=== PATIENT | female | born 1995 | race Caucasian/White ===

== ENCOUNTER 2018-05-02 03:52 | Inpatient (IN) ==
--- NOTE | 2018-05-02 05:10 | ED ---
History of Present Illness Primary Care Physician: UNKNOWN No care Chief Complaint: Contractions, it is time to have my baby History of Present Illness: 22-year-old reports 41-week presents complaining of contractions states is also time to deliver. No care to date. Patient reports that she moves every week. 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 SKIN: Warm and dry. HEAD: Normocephalic and atraumatic. EYES: No scleral icterus. No injection or drainage. ENT: No nasal drainage noted. Mucous membranes pink. Airway patent. NECK: Supple, trachea midline. No JVD. CARDIOVASCULAR: Regular rate and rhythm without murmurs, gallops, or rubs. RESPIRATORY: Breath sounds equal bilaterally. No accessory muscle use. BREASTS: Bilateral exam showed no masses , no retractions, no nipple discharge. ABDOMEN/GI: Abdomen soft, non-tender, bowel sounds present, no rebound, no guarding Gravid to 38 weeks size Fundal Height: 38 GENITOURINARY: External Genitalia: intact and normal in appearance BUS glands: Unremarkable Cervix: Soft Dilatation: 1 Effacement: 90% Station: -2 Presentation: Vertex Membranes: Intact Uterine Contractions: Present FHT's: Category: 1 Variability: Moderate EXTREMITIES: No cyanosis or edema. BACK: Nontender without obvious deformity. No CVA tenderness. NEUROLOGICAL: Awake and alert. Motor and sensory grossly within normal limits. Five out of 5 muscle strength in all muscle groups. Normal speech. Results - Labs CBC & Chem 7: 05/02/18 05:05 Assessment and Plan - Diagnosis (1) Non-reactive NST (non-stress test) Code(s): O28.8 - Other abnormal findings on screening of mother Status: Acute (2) No care in current in third trimester Code(s): O09.33 - Supervision of with insufficient care, third trimester Status: Acute (3) Uterine contractions Status: Acute (4) 41 weeks gestation of Code(s): Z3A.41 - 41 weeks gestation of Status: Acute - Plan No care to date All unregistered labs GBS Ultrasound scheduled this morning for dating Discussed with the patient plan for admit- heart rate category 2 with episodic variable decelerations noted as well as accelerations noted Will hydrate with fluids and continue monitor Discharge Plan - Discharge Disposition Patient Disposition: ED Admit(ED Internal Use Only) - Discharge Condition Condition: Stable - Physicians Team ED Provider: Linda Lane Primary Care Provider: UNKNOWN, - Rxs /Orders / Referrals /Forms Referrals: UNKNOWN, [Primary Care Provider] - See Instructions - Discharge Instructions Print Language: Bruneian
[2018-05-02 05:27] LABS: Baso # (Auto) 0.1 th/mm3 (0.0-0.2); Baso % (Auto) 0.8 % (0.0-2.0); Eos # (Auto) 0.1 th/mm3 (0.0-0.4); Eos % (Auto) 1.1 % (0.0-4.0); Hematocrit 39.5 % (35.0-46.0); Hemoglobin 13.2 gm/dL (11.6-15.3); Lymph # (Auto) 1.1 th/mm3 (1.0-4.8); Lymph % (Auto) 9.1 % (9.0-44.0); Mean Corpuscular HGB Conc 33.3 % (32.0-36.0); Mean Platelet Volume 10.2 fL (7.0-11.0); Mono # (Auto) 0.6 th/mm3 (0.0-0.9); Mono % (Auto) 4.6 % (0.0-8.0); Neut # (Auto) 10.5 th/mm3 (1.8-7.7); Neut % (Auto) 84.4 % (16.0-70.0); Platelet Count 145 th/mm3 (150-450); Red Blood Count 4.54 mil/mm3 (4.00-5.30); Red Cell Distribution Width 13.9 % (11.6-17.2); White Blood Count 12.4 th/mm3 (4.0-11.0)
[2018-05-02] MEDS ORDERED: Oxytocin 30 Units/500ml Premix 30 UNITS/500 ML BAG IV.SIG ONE (05:36)
[2018-05-02] MEDS ORDERED: Naloxone Inj 0.4 MG/ML Vial IV.PUSH PRN (05:36)
[2018-05-02] MEDS ORDERED: Sod Chloride 0.9% Inj 1,000 ML IV.CONT PRN (05:36)
[2018-05-02] MEDS ORDERED: fentaNYL Citrate Inj 100 MCG/2 ML Ampul IV.PUSH PRN ×2 (05:36)
[2018-05-02] MEDS ORDERED: Sodium Chlor 0.9% Inj 500 ML IV.SIG PRN (05:36)
--- NOTE | 2018-05-02 05:40 | P.HPOB ---
Patient Name: Marjorie Morley Date of : 89 Patient Status: Emergency Emergency Provider: Linda Lane Date: 05/02/18 05:03 Initialization Date: 05/02/18 05:03 History of Present Illness Primary Care Physician: UNKNOWN No care Chief Complaint: Contractions, it is time to have my baby History of Present Illness: 22-year-old reports 41-week presents complaining of contractions states is also time to deliver. No care to date. Patient reports that she moves every week. 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 SKIN: Warm and dry. HEAD: Normocephalic and atraumatic. EYES: No scleral icterus. No injection or drainage. ENT: No nasal drainage noted. Mucous membranes pink. Airway patent. NECK: Supple, trachea midline. No JVD. CARDIOVASCULAR: Regular rate and rhythm without murmurs, gallops, or rubs. RESPIRATORY: Breath sounds equal bilaterally. No accessory muscle use. BREASTS: Bilateral exam showed no masses , no retractions, no nipple discharge. ABDOMEN/GI: Abdomen soft, non-tender, bowel sounds present, no rebound, no guarding Gravid to 38 weeks size Fundal Height: 38 GENITOURINARY: External Genitalia: intact and normal in appearance BUS glands: Unremarkable Cervix: Soft Dilatation: 1 Effacement: 90% Station: -2 Presentation: Vertex Membranes: Intact Uterine Contractions: Present FHT's: Category: 2 Variability: Moderate EXTREMITIES: No cyanosis or edema. BACK: Nontender without obvious deformity. No CVA tenderness. NEUROLOGICAL: Awake and alert. Motor and sensory grossly within normal limits. Five out of 5 muscle strength in all muscle groups. Normal speech. Results - Labs CBC & Chem 7: 05/02/18 05:05 Assessment and Plan - Diagnosis (1) Non-reactive NST (non-stress test) Code(s): O28.8 - Other abnormal findings on screening of mother Status: Acute (2) No care in current in third trimester Code(s): O09.33 - Supervision of with insufficient care, third trimester Status: Acute (3) Uterine contractions Status: Acute (4) 41 weeks gestation of Code(s): Z3A.41 - 41 weeks gestation of Status: Acute - Plan No care to date All unregistered labs GBS Ultrasound scheduled this morning for dating Discussed with the patient plan for admit- heart rate category 2 with episodic variable decelerations noted as well as accelerations noted Will hydrate with fluids and continue monitor Discharge Plan - Discharge Disposition Patient Disposition: ED Admit(ED Internal Use Only) - Discharge Condition Condition: Stable
[2018-05-02] MEDS ORDERED: Citric Acid/Sodium Citrate Liq 30 ML UDC PO SCH (05:45)
[2018-05-02 06:24] VITALS: RESP 18
[2018-05-02 06:43] LABS: Rubella IgG Antibody 102.4 IU/mL (10.0-500.0)
[2018-05-02 07:14] LABS: Hepatitis A IgM Antibody Nonreactive (Nonreactive); Hepatitits B Surface Antigen Nonreactive (Nonreactive)
[2018-05-02 08:21] VITALS: BP 131/80; PULSE 67; TEMP 97.5
--- NOTE | 2018-05-02 10:49 | P.OBGPN ---
Patient with BPP 8/10, NST reactive. She will be discharged today and scheduled for induction on Tuesday.
== END 2018-05-02 11:18 | disposition home or self-care (01) ==
LOC: HOBED 03:52 → H2E 05:38
PROVIDERS: ADMIT Obstetrics & Gynecology; ATTEND Obstetrics & Gynecology

== ENCOUNTER 2018-05-02 19:19 | Inpatient (IN) ==
[~2018-05-02 19:19] MED LIST: Diphtheria/Tetanus/Pertussis Vaccine Inj 0.5 ML Syringe IM ONE; Measles/Mumps/Rubella Vaccine Inj 0.5 ML Vial SQ ONE
[2018-05-02] MEDS ORDERED: Penicillin G Potassium Inj 5,000,000 UNIT in Sodium Chloride 0.9% Inj 100 ML IV.SIG ONE (20:13)
[2018-05-02] MEDS ORDERED: fentaNYL Citrate Inj 100 MCG/2 ML Ampul IV.PUSH PRN ×2 (20:13)
[2018-05-02] MEDS ORDERED: Sodium Chlor 0.9% Inj 500 ML IV.SIG PRN (20:13)
[2018-05-02] MEDS ORDERED: Oxytocin 30 Units/500ml Premix 30 UNITS/500 ML BAG IV.SIG ONE (20:13)
[2018-05-02] MEDS ORDERED: Naloxone Inj 0.4 MG/ML Vial IV.PUSH PRN ×2 (20:13→23:14)
[2018-05-02] MEDS ORDERED: Sod Chloride 0.9% Inj 1,000 ML IV.CONT PRN (20:13)
[2018-05-02] MEDS ORDERED: Citric Acid/Sodium Citrate Liq 30 ML UDC PO SCH (20:15)
--- NOTE | 2018-05-02 20:32 | P.HPOB ---
History of Present Illness Primary Care Physician: No Primary Care Physician Chief Complaint: fluid leakage History of Present Illness: Patient is a 22 year old at 41 weeks and 1 day who presents to OB triage for evaluation of fluid leakage. Patient says that she has experienced continuous clear fluid leakage since 4 or 5 p.m. today. She has also been experiencing some vaginal bleeding this afternoon. Patient had been admitted to L&D yesterday, then was discharged this morning and scheduled for an induction on Tuesday. Patient denies contractions; she endorses a feeling of pressure in her vaginal area. Patient endorses positive movement. No care to date; patient reports that she moves every week. Weeks Gestation:: 41 Para: 0 : 1 - Inpatient Certification I certify that the inpatient services were ordered in accordance with Medicare regulations governing the order. This includes certification that hospital inpatient services are reasonable and necessary and in the case of services not specified as inpatient-only under 42 CFR 419.22(n), that they are appropriately provided as inpatient services in accordance to with the 2-midnight benchmark under 43 CFR 412.3(e) Estimated Total Length of Stay (Days): 3 Plans for Post Hospital Care: Home Review of Systems All other systems reviewed negative except as stated in HPI PMFSH - History History Provided By: Patient - Medical / Surgical Hx Neg / Unobtainable Medical Problems Denied: Yes Surgical History: No Previous Surgery - Family History Family History: Family History (Last Updated 05/02/18 @ 20:30 by Jada Hernandez MD, R2) Other No significant family history - Social History I have reviewed the patient's Social History: Yes - Tobacco History Smoking Status: Never smoker - Alcohol History How Often Do You Have a Drink Containing Alcohol: Never - Substance Use History Substance History: No History of Abuse Medications and Allergies Active Medications: Active Medications Citric Acid/Sodium Citrate (Sodium Citrate/Citric Acid Liq) 30 ml PO [employer]AC[employer] A[employer]LY[employer] [facility] Stop: 05/06/18 20:14 Fentanyl Citrate (Fentanyl Inj) 50 mcg IV.PUSH Q1H PRN PRN Reason: Pain Scale 3 - 5 Fentanyl Citrate (Fentanyl Inj) 100 mcg IV.PUSH Q1H PRN PRN Reason: PAIN SCALE 6 TO 10 Lactated Ringer's (Lr 1000 Ml Inj) 1,000 mls @ 3,000 mls/hr IV.SIG UNSCH PRN PRN Reason: compromise or epidural Lactated Ringer's (Lr 1000 Ml Inj) 1,000 mls @ 125 mls/hr IV.CONT .Q8H ELOISE Sodium Chloride (Ns Inj) 500 mls @ 1,000 mls/hr IV.SIG UNSCH PRN PRN Reason: SEE LABEL COMMENTS Sodium Chloride (Ns Inj) 1,000 mls @ 100 mls/hr IV.CONT .Q10H PRN PRN Reason: SEE LABEL COMMENTS Oxytocin (Pitocin 30 Units/Ns 500 Ml Premix) 30 units in 500 mls @ 999 mls/hr IV.SIG BOLUS ONE Stop: 05/02/18 20:43 Penicillin G Potassium 5,000, (000 unit/ Sodium Chloride) 100 mls @ 200 mls/hr IV.SIG ONCE ONE Stop: 05/02/18 20:42 Penicillin G Potassium 2,500, (000 unit/ Sodium Chloride) 100 mls @ 200 mls/hr IV.SIG Q4H ELOISE Lidocaine HCl (Xylocaine 1% Inj) 0.1 ml I-DERMAL PRN PRN PRN Reason: For IV start Stop: 05/05/18 20:12 Lidocaine HCl (Xylocaine 1% Inj) 10 ml INFILTRATN PRN PRN PRN Reason: For episiotomy repair Stop: 05/04/18 20:12 Mineral Oil (Muri-Lube Oil) 10 ml TOPICAL PRN PRN PRN Reason: PRN perineal massage Naloxone HCl (Narcan Inj) 0.1 mg IV.PUSH Q2M PRN PRN Reason: for opiate reversal Allergies Allergy/AdvReac Type Severity Reaction Status Date / Time No Known Allergies Allergy Unverified 05/02/18 04:46 Home Medications Medication Instructions Recorded Confirmed Type [id number] 1 tab PO DAILY 05/02/18 05/02/18 History [PreNata] Exam Narrative: GENERAL: Well-nourished, well-developed patient. SKIN: Warm and dry. HEAD: Normocephalic and atraumatic. EYES: No scleral icterus. No injection or drainage. ENT: No nasal drainage noted. Mucous membranes pink. Airway patent. NECK: Supple, trachea midline. No JVD. CARDIOVASCULAR: Regular rate and rhythm without murmurs, gallops, or rubs. RESPIRATORY: Breath sounds equal bilaterally. No accessory muscle use. ABDOMEN/GI: Abdomen soft, non-tender, bowel sounds present, no rebound, no guarding Fundal Height: 41 GENITOURINARY: External Genitalia: intact and normal in appearance Dilatation: 9 cm Effacement: 100 Station: -1 Membranes: intact Uterine Contractions: q2-3min FHT's: Category: 1 Baseline: 140 Reactive: + Variability: moderate, with accelerations Decels: none EXTREMITIES: No cyanosis or edema. NEUROLOGICAL: Awake and alert. Motor and sensory grossly within normal limits. Five out of 5 muscle strength in all muscle groups. Normal speech. Caprini VTE Risk Assessment Caprini VTE Risk Assessment: No/Low Risk (score <= 1) Caprini Risk Assessment Model: Point Value = 1 Point Value = 2 Point Value = 3 Point Value = 5 Age 41-60 Minor surgery BMI > 25 kg/m2 Swollen legs Varicose veins or History of unexplained or recurrent spontaneous Oral contraceptives or hormone replacement Sepsis (< 1 month) Serious lung disease, including pneumonia (< 1 month) Abnormal pulmonary function Acute myocardial infarction Congestive heart failure (< 1 month) History of inflammatory bowel disease Medical patient at bed rest Age 61-74 Arthroscopic surgery Major open surgery (> 45 min) Laparoscopic surgery (> 45 min) Malignancy Confined to bed (> 72 hours) Immobilizing plaster cast Central venous access Age >= 75 History of VTE Family history of VTE Factor V Leiden Prothrombin [id number] Lupus anticoagulant Anticardiolipin antibodies Elevated serum homocysteine Heparin-induced thrombocytopenia Other congenital or acquired thrombophilia Stroke (< 1 month) Elective arthroplasty Hip, pelvis, or leg fracture Acute spinal cord injury (< 1 month) Prophylaxis Regimen: Total Risk Factor Score Risk Level Prophylaxis Regimen 0-1 Low Early ambulation 2 Moderate Order ONE of the following: *Sequential Compression Device (SCD) *Heparin 5000 units SQ BID 3-4 Higher Order ONE of the following medications: *Heparin 5000 units SQ TID *Enoxaparin/Lovenox 40 mg SQ daily (WT < 150 kg, CrCl > 30 mL/min) *Enoxaparin/Lovenox 30 mg SQ daily (WT < 150 kg, CrCl > 10-29 mL/min) *Enoxaparin/Lovenox 30 mg SQ BID (WT < 150 kg, CrCl > 30 mL/min) AND/OR *Sequential Compression Device (SCD) 5 or more Highest Order ONE of the following medications: *Heparin 5000 units SQ TID (Preferred with Epidurals) *Enoxaparin/Lovenox 40 mg SQ daily (WT < 150 kg, CrCl > 30 mL/min) *Enoxaparin/Lovenox 30 mg SQ daily (WT < 150 kg, CrCl > 10-29 mL/min) *Enoxaparin/Lovenox 30 mg SQ BID (WT < 150 kg, CrCl > 30 mL/min) AND *Sequential Compression Device (SCD) Assessment and Plan - Diagnosis (1) 41 weeks gestation of Code(s): Z3A.41 - 41 weeks gestation of Status: Acute (2) No care in current in third trimester Code(s): O09.33 - Supervision of with insufficient care, third trimester Status: Acute - Plan Patient is a 22 year old at 41 weeks and 1 day admitted to labor and delivery. Routine L&D orders placed. GBS ordered. Penicillin given. Expect vaginal delivery. fani Borrero.
[2018-05-02 20:51] LABS: Baso # (Auto) 0.1 th/mm3 (0.0-0.2); Baso % (Auto) 0.4 % (0.0-2.0); Eos % (Auto) 0.1 % (0.0-4.0); Hematocrit 39.6 % (35.0-46.0); Hemoglobin 13.3 gm/dL (11.6-15.3); Lymph # (Auto) 1.1 th/mm3 (1.0-4.8); Lymph % (Auto) 6.1 % (9.0-44.0); Mean Corpuscular HGB Conc 33.6 % (32.0-36.0); Mean Corpuscular Hemoglobin 28.9 pg (27.0-34.0); Mean Platelet Volume 9.9 fL (7.0-11.0); Mono # (Auto) 0.9 th/mm3 (0.0-0.9); Mono % (Auto) 4.9 % (0.0-8.0); Neut # (Auto) 16.2 th/mm3 (1.8-7.7); Neut % (Auto) 88.5 % (16.0-70.0); Platelet Count 176 th/mm3 (150-450); Red Blood Count 4.61 mil/mm3 (4.00-5.30); Red Cell Distribution Width 13.7 % (11.6-17.2); White Blood Count 18.3 th/mm3 (4.0-11.0)
[2018-05-02] MEDS ORDERED: Lidocaine 1% Inj 50 ML Vial ONE (21:53)
[2018-05-02] MEDS ORDERED: Oxytocin 30 Units/500ml Premix 30 UNITS/500 ML BAG IV.CONT PRN (23:14)
[2018-05-02] MEDS ORDERED: Witch Hazel 50%/Glyderin 12.5% 40 Pad Jar RECTAL PRN (23:14)
[2018-05-02] MEDS ORDERED: Benzocaine 20% Top Spray 60 ML Can TOPICAL PRN (23:14)
[2018-05-02] MEDS ORDERED: Zolpidem Tartrate 5 MG Tablet PO PRN (23:14)
[2018-05-02] MEDS ORDERED: Acetaminophen 325 MG Tablet PO PRN (23:14)
--- NOTE | 2018-05-02 23:21 | P.OBDELI ---
Weeks Gestation: 41 Patient Started Active Labor: Yes Medical Induction of Labor: No Artificial Rupture of Membrane: No Anesthesia: None Episiotomy: none Vaginal Delivery: Normal, Spontaneous Presentation: Vertex Nuchal Cord: None Delayed Cord Clamping (45 sec): Yes Placenta: Spontaneous delivery, Intact, 3 vessel cord Laceration: Perineal, 2 deg Repair: Chromic running Estimated blood loss (mL): 200 : Female, Single Infant Delivery Date: 05/02/18 Infant Delivery Time: 23:03 Weight: 4 kg score (1 min): 8 score (5 min): 9 Additional Information: Delivered by Dr. Lauren, supervised by Dr. Borrero.
[2018-05-03] MEDS ORDERED: Penicillin G Potassium Inj 2,500,000 UNIT in Sodium Chlor 0.9% Inj 100 ML IV.SIG SCH (00:15)
--- NOTE | 2018-05-03 09:01 | P.PNOB ---
Subjective Post day: 1 Interval history: Pt seen and examined this morning. day # 1 AFVSS overnight. Decreased lochia. Denies dysuria. No breast tenderness. She is feeding the baby via breast. Appetite good. No nausea or vomiting. Patient has not yet had a bowel movement but is passing gas. ] Ambulating well. Denies calf pain or shortness of breath. Otherwise, she is doing well this morning and has no other concerns. Objective Vital Signs/I&O: Vital Signs 05/02/18 19:50 05/02/18 20:00 05/02/18 22:30 Temperature 98.8 F Pulse Rate 91 H Respiratory Rate 18 9 L Blood Pressure 122/74 05/02/18 23:33 05/02/18 23:53 05/03/18 00:00 Temperature Pulse Rate 91 H 101 H 106 H Respiratory Rate 18 18 Blood Pressure 122/67 135/102 H 119/69 05/03/18 00:15 05/03/18 00:31 05/03/18 00:45 Temperature Pulse Rate 98 H 90 92 H Respiratory Rate 18 18 Blood Pressure 120/65 106/77 124/74 05/03/18 00:46 05/03/18 01:00 05/03/18 01:20 Temperature 98.6 F Pulse Rate 101 H Respiratory Rate 18 18 Blood Pressure 131/61 05/03/18 01:50 05/03/18 08:00 Temperature 98.0 F 100.0 F H Pulse Rate 90 126 H Respiratory Rate 18 20 Blood Pressure 118/69 121/66 Intake & Output 05/02/18 05/03/18 05/03/18 18:59 06:59 18:59 Weight 69.4 kg Other: Weight On Admission 69.4 kg Result Diagrams: 05/02/18 14:38 Objective Remarks: GENERAL: Well-nourished, well-developed patient. CARDIOVASCULAR: Regular rate and rhythm without murmurs, gallops, or rubs. RESPIRATORY: Breath sounds equal bilaterally. No accessory muscle use. ABDOMEN/GI: Abdomen soft, non-tender. Fundus: Firm, non-tender at umbilicus. GENITOURINARY: Light to moderate bleeding. EXTREMITIES: No cyanosis or edema, non-tender, without signs of DVT. +2 DP pulses BL Medications and IVs: Active Medications Acetaminophen (Tylenol) 650 mg PO Q4H PRN PRN Reason: PAIN SCALE 1 TO 2 Al Hydroxide/Mg Hydroxide (Milk Of Magnhumera Liq) 30 ml PO Q12H PRN PRN Reason: Mild Constipation Benzocaine (Americaine 20% [place]) 1 spray TOPICAL Q4H PRN PRN Reason: For Perineum Discomfort Last Admin: 05/03/18 02:35 Dose: 1 spray Oxytocin (Pitocin 30 Units/Ns 500 Ml Premix) 30 units in 500 mls @ 100 mls/hr IV.CONT UNSCH PRN PRN Reason: Heavy bleeding Ibuprofen (Motrin) 800 mg PO Q8H PRN PRN Reason: For Cramping Naloxone HCl (Narcan Inj) 0.1 mg IV.PUSH Q2M PRN PRN Reason: for opiate reversal Ondansetron HCl (Zofran Odt) 4 mg PO Q6H PRN PRN Reason: NAUSEA OR VOMITING Oxycodone/Acetaminophen (Percocet 5/325 Mg) 1 tab PO Q4H PRN PRN Reason: PAIN SCALE 3 TO 5 Oxycodone/Acetaminophen (Percocet 5/325 Mg) 2 tab PO Q4H PRN PRN Reason: PAIN SCALE 6 TO 10 Senna/Docusate Sodium (Gabriella-Colace) 1 tab PO BID ELOISE Sennosides (Senokot) 17.2 mg PO Q12H PRN PRN Reason: Moderate Constipation Sodium Chloride (Ns Flush) 2 ml IV.FLUSH BID ELOISE Sodium Chloride (Ns Flush) 2 ml IV.FLUSH PRN PRN PRN Reason: FLUSH AFTER USING IV ACCESS Witch Hanh/Glycerin (Tucks Pads) 1 applicatio RECTAL QID PRN PRN Reason: HEMORRHOIDS Last Admin: 05/03/18 02:34 Dose: 1 applicatio Zolpidem Tartrate (Ambien) 5 mg PO HS PRN PRN Reason: SLEEP Assessment and Plan - Diagnosis (1) 41 weeks gestation of Code(s): Z3A.41 - 41 weeks gestation of Status: Acute (2) No care in current in third trimester Code(s): O09.33 - Supervision of with insufficient care, third trimester Status: Acute - Plan Patient is a 22 year old at 41 weeks and 1 day delivered via yesterday. PPD #1. -Continue routine care. -Percocet and Motrin PRN pain. -Encouraged OOB. Advised pelvic rest for 6 wks. -Discussed control and pt will like to think about her options at the moment -Anticipate discharge tomorrow. fani Borrero.
[2018-05-03] MEDS: Senna/Docusate Sodium 8.6/50 MG Tablet PO SCH ×2 (09:57→20:29)
[2018-05-04 08:16] VITALS: BP 125/77; PULSE 85
[2018-05-04 08:17] VITALS: RESP 20; TEMP 97.9
--- NOTE | 2018-05-04 08:26 | P.PNOB ---
Subjective Post day: 2 Interval history: Patient seen and examined this morning. AFVSS overnight. day #2. Pain well controlled. Decreased lochia. Denies dysuria. No breast tenderness. Appetite good. No nausea or vomiting. Positive flatus. No bowel movement. Ambulating well. Denies calf pain, shortness of breath, or cough. She otherwise has no other complaints or concerns this morning. Objective Vital Signs/I&O: Vital Signs 05/03/18 12:00 05/03/18 20:00 05/04/18 08:00 Temperature 98.3 F 98.2 F 97.9 F Pulse Rate 67 85 Respiratory Rate 18 20 Blood Pressure 106/61 125/77 Result Diagrams: 05/02/18 14:38 Objective Remarks: GENERAL: Well-nourished, well-developed patient. CARDIOVASCULAR: Regular rate and rhythm without murmurs, gallops, or rubs. RESPIRATORY: Breath sounds equal bilaterally. No accessory muscle use. ABDOMEN/GI: Abdomen soft, non-tender. Fundus: Firm, non-tender at umbilicus. GENITOURINARY: Light bleeding. EXTREMITIES: No cyanosis or edema, non-tender, without signs of DVT. Medications and IVs: Active Medications Acetaminophen (Tylenol) 650 mg PO Q4H PRN PRN Reason: PAIN SCALE 1 TO 2 Al Hydroxide/Mg Hydroxide (Milk Of Krystin Harvey) 30 ml PO Q12H PRN PRN Reason: Mild Constipation Benzocaine (Americaine 20% Top [place]) 1 spray TOPICAL Q4H PRN PRN Reason: For Perineum Discomfort Last Admin: 05/03/18 02:35 Dose: 1 spray Oxytocin (Pitocin 30 Units/Ns 500 Ml Premix) 30 units in 500 mls @ 100 mls/hr IV.CONT UNSCH PRN PRN Reason: Heavy bleeding Ibuprofen (Motrin) 800 mg PO Q8H PRN PRN Reason: For Cramping Naloxone HCl (Narcan Inj) 0.1 mg IV.PUSH Q2M PRN PRN Reason: for opiate reversal Ondansetron HCl (Zofran Odt) 4 mg PO Q6H PRN PRN Reason: NAUSEA OR VOMITING Oxycodone/Acetaminophen (Percocet 5/325 Mg) 1 tab PO Q4H PRN PRN Reason: PAIN SCALE 3 TO 5 Oxycodone/Acetaminophen (Percocet 5/325 Mg) 2 tab PO Q4H PRN PRN Reason: PAIN SCALE 6 TO 10 Senna/Docusate Sodium (Gabriella-Colace) 1 tab PO BID [facility] Last Admin: 05/03/18 20:29 Dose: 1 tab Sennosides (Senokot) 17.2 mg PO Q12H PRN PRN Reason: Moderate Constipation Sodium Chloride (Ns Flush) 2 ml IV.FLUSH BID [facility] Last Admin: 05/03/18 20:29 Dose: Not Given Sodium Chloride (Ns Flush) 2 ml IV.FLUSH PRN PRN PRN Reason: FLUSH AFTER USING IV ACCESS Witch Hanh/Glycerin (Tucks Pads) 1 applicatio RECTAL QID PRN PRN Reason: HEMORRHOIDS Last Admin: 05/03/18 02:34 Dose: 1 applicatio Zolpidem Tartrate (Ambien) 5 mg PO HS PRN PRN Reason: SLEEP Assessment and Plan - Diagnosis (1) 41 weeks gestation of Code(s): Z3A.41 - 41 weeks gestation of Status: Acute (2) No care in current in third trimester Code(s): O09.33 - Supervision of with insufficient care, third trimester Status: Acute - Plan Patient is a 22 year old at 41 weeks and 1 day delivered via yesterday. PPD #2. -Continue routine care. - Motrin PRN pain. -Encouraged OOB. Advised pelvic rest for 6 wks. -Discussed control and pt will like to think about her options at the moment, declined ocps -Anticipate discharge today. fani Hart.
[2018-05-04] MEDS: Senna/Docusate Sodium 8.6/50 MG Tablet PO SCH (09:16)
== END 2018-05-04 11:44 | disposition home or self-care (01) ==
LOC: HOBED 19:19 → H2E 20:13 → H1EA 20:15
PROVIDERS: ADMIT Obstetrics & Gynecology Maternal & Fetal Medicine; ATTEND Obstetrics & Gynecology Maternal & Fetal Medicine